=== PATIENT | male | born 1955 | race Caucasian/White ===

== ENCOUNTER 2018-08-05 07:56 | Day surgery (SDC) | payer BC ==
[~2018-08-05 07:56] MED LIST: ACETAMINOPHEN 1,000 MG/100 ML BTL IV ONE; CEFAZOLIN 2 Gram 2 GM/50 ML BAG IVPB ONE; CELECOXIB 100 MG CAPSULE PO ONE; FAMOTIDINE 20MG TABLET PO ONE; MECLIZINE 25 MG TABLET PO ONE; METOCLOPRAMIDE 10 MG TABLET PO ONE; SCOPOLAMINE 1 PATCH TDSY TD ONE; VANCOMYCIN HCL 1,000 MG in DEXTROSE 5 % IN WATER 250 ML IVPB ONE
[2018-08-05] MEDS ORDERED: BUPIVACAINE 0.5% W/EPI MPF 30 ML VIAL IVP ONE (07:57)
[2018-08-05] MEDS ORDERED: PROPOFOL 10 MG/ML VIAL IV ONE (07:57)
[2018-08-05] MEDS ORDERED: KETOROLAC 30 MG/ML VIAL IVP ONE (07:57)
[2018-08-05] MEDS ORDERED: TRANEXAMIC ACID 1,000 MG/10 ML ML IV ONE ×2 (07:57)
[2018-08-05] MEDS ORDERED: BUPIVACAINE LIPOSOME 266MG/20ML VIAL IV ONE (07:57)
[2018-08-05] MEDS ORDERED: MIDAZOLAM HCL 2MG/2ML VIAL IV ONE (07:57)
[2018-08-05] MEDS ORDERED: LIDOCAINE 2% MDV (20MG/ML) 20ML VIAL IV ONE (07:57)
[2018-08-05] MEDS ORDERED: KETAMINE HCL 100MG/1ML VIAL INJ ONE (07:57)
[2018-08-05] MEDS ORDERED: VANCOMYCIN HCL 1 GM VIAL IVPB ONE (07:57)
[2018-08-05] MEDS ORDERED: BISACODYL 10 MG SUPP RC PRN (08:29)
[2018-08-05] MEDS ORDERED: ONDANSETRON HCL IV 4 MG/2 ML VIAL IVP PRN (08:29)
[2018-08-05] MEDS ORDERED: HYDROCODONE/APAP 5/325MG TABLET PO PRN (08:29)
[2018-08-05] MEDS ORDERED: AL HYDROX/MAG HYDROX 30ML UD PO PRN (08:29)
[2018-08-05] MEDS ORDERED: PROMETHAZINE HCL 12.5 MG in 0.9 % SODIUM CHLORIDE 100ML 50 ML IVPB PRN (08:29)
[2018-08-05] MEDS ORDERED: DIPHENHYDRAMINE HCL 25 MG CAPSULE PO PRN (08:29)
[2018-08-05] MEDS ORDERED: ACETAMINOPHEN W/ CODEINE 300MG/30MG TABLET PO PRN ×2 (08:29)
[2018-08-05] MEDS ORDERED: TRAMADOL HCL 50 MG TABLET PO PRN ×2 (08:29)
[2018-08-05] MEDS ORDERED: ACETAMINOPHEN W/ CODEINE 300MG/60MG TABLET PO PRN ×2 (08:29)
[2018-08-05] MEDS ORDERED: NALOXONE 0.4 MG/1 ML VIAL IVP PRN (08:29)
[2018-08-05] MEDS ORDERED: ACETAMINOPHEN 325 MG TAB PO PRN (08:29)
[2018-08-05] MEDS ORDERED: HYDROCODONE/APAP 7.5/325MG TABLET PO PRN ×2 (08:29)
[2018-08-05] MEDS ORDERED: HYDROMORPHONE HCL 2 MG/ML VIAL IM PRN ×2 (08:29)
[2018-08-05] MEDS ORDERED: ZOLPIDEM TARTRATE 5 MG TABLET PO PRN (08:29)
[2018-08-05] MEDS ORDERED: KETOROLAC 30 MG/ML VIAL IVP PRN ×2 (08:29)
[2018-08-05] MEDS ORDERED: MAGNESIUM HYDROXIDE 30 ML UDC PO PRN (08:29)
[2018-08-05] MEDS ORDERED: METOCLOPRAMIDE HCL 10 MG/2 ML VIAL IVP PRN (08:29)
[2018-08-05 09:00] LABS: ABO GROUP A; ANTIBODY SCREEN NEGATIVE (NEGATIVE); RH TYPE POSITIVE
[2018-08-05] MEDS ORDERED: DOCUSATE SODIUM 100 MG CAPSULE PO SCH (10:00)
[2018-08-05] MEDS: DEXTROSE 5 % AND 0.9 % NACL 1,000 ML IV PRN ×2 (15:01→16:58)
--- NOTE | 2018-08-05 15:40 | Rehab Evaluation ---
Patient Information - Patient Information Diagnosis: R hip OA Ordered Treatment: PT Evaluate and Treat Status: Initial Evaluation Surgery: Yes (Revision of R THR) Date of Surgery: 08/05/18 Past Medical/Surgical Hx: PAST MEDICAL/SURGICAL HISTORY Past Surgical History RTHA 17 YRS AGO C SCOPES LTHA 3 YRS AGO PMH - Respiratory Hx Respiratory Disorders No PMH - Cardiovascular Hx Cardiovascular Disorders Yes Hx Hypertension Yes: ON MEDS FOR 1 MONTH Exercise Tolerance Fair PMH - Neuro Hx Neurological Disorders No PMH - GI Hx Gastrointestinal Disorders Yes Hx Diverticulitis Yes Hx Irritable Bowel Yes: INTERMITTENT DIARRHEA PMH - Hx Genitourinary Disorders No PMH - Endocrine Hx Endocrine Disorders No PMH - Musculoskeletal Hx Musculoskeletal Disorders Yes Hx Arthritis Yes PMH - Psych Hx Psychiatric Problems No PMH - Hematology/Oncology Hx Hematology/Oncology Yes Disorders Comment: BLEEDS EASILY Premorbid Status: Detail (The patient was independent with all mobility prior to surgery.) Social History: Detail (The patient lives with spouse in a one story house with 2 steps at the entrance. The patient's bathroom is equipped with a tub/shower combination with grab bars, shower chair, standard toilet with a commode seat. The patient has a wheelchair, standard walker and standard cane.) Precautions: [place], Fall, Other (THR precautions.) - Time With Patient Total Time Spent With Patient (Min): 30 Treatment Procedures: Detail (Initial Evaluation, gait training) Subjective Information - Subjective Information Per Patient (The patient had minimal complaints of R hip pain. The patient did not rate his pain using 0-10 pain scale.) Objective Data - Mental Status Patient Orientation: Oriented x3 - Visual Perception Appears within normal limits for therapeutic activities - ROM Not within normal limits (The patient's R hip is within THR precautions. All other LE AROM is WNL.) - Strength/Tone Not within normal limits (The patient's R LE strength was not tested s/p surgery , however was functional ie: the patient could lift R LE in and out of bed. The patient's L LE strength is WNL.) - Bed Mobility Independent (The patient was independent with supine to and from sit transfer.) - Transfers Independent (The patient was independent with sit to and from stand transfer and toilet transfer.) - Balance Balance Sitting: Good Balance Standing: Good - Sensation Intact - Gait Detail (The patient ambulated with standard walker a distance of 150 feet x 1 independently WBAT on the R LE. The patient ambulated on stairs using proper technique with one railing and folded walker with supervision for safety only.) Therapy Assessment - Therapy Assessment Detail (The patient was independent with bed mobility, transfers and ambulation , with supervision for safety on the stairs. Due to few personal factors the patient's evaluation complexity is rated as low. The patient has met all inpatient PT goals and is to receive Home PT.) Patient Education - Patient Education Teaching Topic: Exercise/Activity (The patient was independent with THR HEP including: gluteal sets, hamstring sets, quad sets, ankle pumps, hip abduction supine and heelslides.), Precautions (The patient expressed good understanding of THR precautions and followed them throughout mobility.) Response: Return Demonstration Teaching Method: Demonstration, Handout Teaching Recipient: Patient Barriers To Learning: None Problem List - Problem List Physical Therapy Problem List: Detail (Decreased R LE strength as to be expected following THR .) Goals - Goals Physical Therapy Goals: The patient has met all inpatient PT goals. Prognosis - Prognosis Good Plan - Plan Physical Therapy Plan: The patient is discharged from inpatient PT and is to continue with Home PT.
--- NOTE | 2018-08-05 16:16 | Physical Therapy Tx Note ---
Physical Therapy Tx Note - Treatment Note Physical Therapy Tx Note: Detail (The patient was not seen this afternoon due to low B/P while in bed. Will see patient on 08/06/18.)
[2018-08-05 16:36] LABS: HEMATOCRIT 31.2 % (42.0-52.0); HEMOGLOBIN 10.2 gm/dl (14.0-18.0); MEAN CELL VOLUME 97.5 fl (81-97); MEAN CORPUSCULAR HGB CONC 32.7 g/dl (32-36); MEAN PLATELET VOLUME 9.7 fl (7.4-10.4); PLATELET COUNT 255 K/uL (130-400); RED CELL DISTRIBUTION WIDTH 13.1 % (11.5-14.5); WHITE BLOOD COUNT W/O DIFF 11.1 K/uL (4.2-12.2)
[2018-08-05 16:42] LABS: MEAN CORPUSCULAR HEMOGLOBIN 31.8 pg (27-33)
--- NOTE | 2018-08-05 19:55 | Operative Note ---
DATE OF SURGERY: 08/05/2018 PREOPERATIVE DIAGNOSIS: FAILURE OF RIGHT TOTAL HIP ARTHROPLASTY, ACETABULAR LINER WEAR. POSTOPERATIVE DIAGNOSIS: FAILURE OF RIGHT TOTAL HIP ARTHROPLASTY, ACETABULAR LINER WEAR. PROCEDURE: REVISION TOTAL HIP ARTHROPLASTY ACETABULAR LINER AND FEMORAL HEAD. SURGEON: LOLIAT DE M.D. ANESTHESIA: SPINAL. CJ, MATHEW. COMPLICATIONS: NONE. BLOOD LOSS: 200 ML. OPERATIVE FINDINGS: COMPLETE WEAR, ALMOST FRACTURE OF THE SUPERIOR PORTION OF THE BIOMET ACETABULAR LINER. COMPONENTS PLACED: I replaced the liner, 32 mm Vitamin E impregnated long- lasting poly liner. We placed a 32 -6 mm ceramic femoral head component. INDICATIONS FOR OPERATION: This is a 62-year-old male who is about 17 years after this right total hip arthroplasty done by a surgeon out of town. He did well initially after. He is a manual construction laborer, on his feet all day. The acetabular component has progressive wear and we have been following him for the last few years. I did his left hip replacement a few years ago. He is doing well with that. He now developed more hip pain and diagnostic injection confirmed this. He had immediate relief after ultrasound-guided injection of his hip joint. He is scheduled for revision of the poly insert. I explained to the patient all the risks and benefits thoroughly in detail for the diagnosis and procedures including but not limited to infection, nerve injury, vessel injury, persistent pain, persistent numbness and tingling, need for further procedures, need for anticoagulation to prevent blood clots and the risks associated with these medications and all of his questions were answered. Rehab and course were outlined and he agreed to proceed. PROCEDURE: The patient was brought to the O.R. and placed in the left lateral decubitus position. His right hip and lower extremity were prepped and draped in sterile fashion. It was prepped again with ChloraPrep after it was draped. Intraoperative time-out was performed. Next, using the previous posterior approach to the hip, it was infiltrated with 0.5% Marcaine with Epinephrine. The skin and subcutaneous tissue were dissected down to the gluteal fascia. The gluteal fascia was split longitudinally. The subgluteal plane was bluntly dissected around the scar and we brought in our self-retainer. We took the short external rotators and took off a thick amount of scar. We then excised the scar, protecting the sciatic nerve at all times, directly visualized, dissecting around the periphery of the acetabulum along the neck and releasing that until we had exposure of the neck and the femoral head. We then dislocated the ceramic femoral head. We tapped that off without any difficulty. The stem was well fixed, stable with rotation, and the shell again was well fixed. There was no movement in it at all. The acetabular liner was obviously essentially warn. We released it around the periphery and we brought in Hohmann's and had good exposure and tucked the thermal neck anteriorly off the edge of the component. Next, we removed the acetabular liner with an osteotome easily. The split ring inside was still intact. We irrigated copiously. We again checked the stability of the liner and it was stable and on x-ray, again well fixed as well as the femoral stem. Next, then we planned on using a 32 mm head. We impacted down the real acetabular liner with a high wall with the gilbert of the wall in the posterior superior quadrant. We tapped that down to verify it was interlocked. Next, we trialed off that and trialed the -3 femoral head component. This allowed for good tensioning and stability with flexion and internal rotation, however, the leg lengths were slightly long. Therefore, went down to a -6. He had a -5 in previously. The -6 brought us down to normal leg lengths with still good abductor tensioning without being too sloppy. He had stability with extension in external rotation and stability with flexion in internal rotation and this was the size we used. Next, we re-dislocated the trials and irrigated copiously. We impacted down the real femoral head component. We re-reduced the hip. Final range of motion revealed the same. Next, we irrigated copiously. We injected deep to superficial using the 0.5% Marcaine, 2 gm tranexamic acid, and Exparel mixture, the short external rotators , subperiosteally in the trochanter area working out to the gluteal and the gluteal fascia. We closed the gluteal fascia with running #2 Quill suture. We closed the skin deep with #2-0 buried Vicryl, and a sterile dressing was applied. It will be converted to a JESUS dressing prior to discharge and left on for one week. Abduction pillow was applied. The patient tolerated the procedure well. No intraoperative complications. All sponge, needle, and blade counts were correct. Recovery stable, neurovascularly intact. He will be discharged to the Floor and likely discharged home tomorrow with home therapy nurse with [facility]. cc: Dr. Scotty Griffith JOB NUMBER: [id number] MTDD
[2018-08-05] MEDS: FERROUS SULFATE 325 MG TAB PO SCH (21:19)
[2018-08-05] MEDS: DOCUSATE SODIUM 100 MG CAPSULE PO SCH (21:19)
[2018-08-05] MEDS: HYDROCODONE/APAP 5/325MG TABLET PO PRN (21:19)
[2018-08-05] MEDS: VANCOMYCIN HCL 1,000 MG in DEXTROSE 5 % IN WATER 250 ML IVPB SCH ×2 (22:01)
[2018-08-06] MEDS: HYDROCODONE/APAP 5/325MG TABLET PO PRN ×2 (02:24→13:03)
[2018-08-06] MEDS: DEXTROSE 5 % AND 0.9 % NACL 1,000 ML IV PRN (03:20)
[2018-08-06 06:48] LABS: HEMATOCRIT 32.9 % (42.0-52.0); HEMOGLOBIN 10.5 gm/dl (14.0-18.0)
--- NOTE | 2018-08-06 08:26 | Rehab Evaluation ---
Patient Information - Patient Information Diagnosis: failed right PREMA Ordered Treatment: OT Evaluate and Treat Status: Initial Evaluation Surgery: Yes (Revision of R THR) Date of Surgery: 08/05/18 Past Medical/Surgical Hx: PAST MEDICAL/SURGICAL HISTORY Past Surgical History RTHA 17 YRS AGO C SCOPES LTHA 3 YRS AGO PMH - Respiratory Hx Respiratory Disorders No PMH - Cardiovascular Hx Cardiovascular Disorders Yes Hx Hypertension Yes: ON MEDS FOR 1 MONTH Exercise Tolerance Fair PMH - Neuro Hx Neurological Disorders No PMH - GI Hx Gastrointestinal Disorders Yes Hx Diverticulitis Yes Hx Irritable Bowel Yes: INTERMITTENT DIARRHEA PMH - Hx Genitourinary Disorders No PMH - Endocrine Hx Endocrine Disorders No PMH - Musculoskeletal Hx Musculoskeletal Disorders Yes Hx Arthritis Yes PMH - Psych Hx Psychiatric Problems No PMH - Hematology/Oncology Hx Hematology/Oncology Yes Disorders Comment: BLEEDS EASILY Premorbid Status: Detail (The patient was independent with all mobility, meal prep, yard work and laundry prior to surgery. Pt and spouse share home mgmt.) Social History: Detail (The patient lives with spouse in a one story house with basement and 2 steps at the entrance with nicola hand railings. The patient's bathroom is equipped with a tub/shower combination with grab bars and shower chair and a standard height toilet with a commode seat. The patient has a wheelchair, walker, wood gang sawyer, sock aid, long shoe horn and standard cane.) Precautions: [place], Fall, Other (THR precautions.) - Time With Patient Total Time Spent With Patient (Min): 40 Treatment Procedures: Detail (OT eval low complexity) Subjective Information - Subjective Information Per Patient Objective Data - Pain Pain Present: Yes (12/25) - Mental Status Patient Orientation: Oriented x3 - Visual Perception Appears within normal limits for therapeutic activities - ROM Within normal limits (Nicola UE AROM WNL) - Strength/Tone Within normal limits (Nicola UE strength WNL) - Coordination Appears within normal limits for therapeutic activities - Bed Mobility Independent (Ind with supine to sit) - Transfers Independent (Ind with sit to stand from EOB and chair heights.) - Balance Balance Sitting: Good Balance Standing: Good - Sensation Intact - Gait Detail (Pt ambulating in room and hallway with walker and SBA.) - ADL's/IADL's Detail (Pt educated re: total hip precautions and modified LE dressing techniques using adaptive equipment. Pt able to demonstrate doffing of slipper socks and donning of socks, pants and tennis shoes using wood gang sawyer, sock aid and long shoe horn while maintaining total hip precautions. He reports his can assist with tying shoes if needed. Reviewed bathroom and shower safety and modifications, pt verbalized understanding.) Therapy Assessment - Therapy Assessment Detail (Pt is Ind with modified LE dressing techniques.) Problem List - Problem List Occupational Therapy Problem List: Detail (No current IP OT problems identified. ) Goals - Goals Occupational Therapy Goals: No current IP OT goals identified. Prognosis - Prognosis Good Plan - Plan Occupational Therapy Plan: No further IP OT recommended. Thank you for this referral.
[2018-08-06] MEDS: DOCUSATE SODIUM 100 MG CAPSULE PO SCH (09:38)
[2018-08-06] MEDS: FERROUS SULFATE 325 MG TAB PO SCH (09:38)
[2018-08-06] MEDS: VANCOMYCIN HCL 1,000 MG in DEXTROSE 5 % IN WATER 250 ML IVPB SCH ×2 (09:39)
[2018-08-06] MEDS ORDERED: CELECOXIB 100 MG CAPSULE PO SCH (10:00)
[2018-08-06] MEDS ORDERED: RIVAROXABAN 10 MG TABLET PO SCH (10:00)
[2018-08-06] MEDS ORDERED: TAMSULOSIN HCL 0.4 MG CAP.ER.24H PO SCH (10:00)
[2018-08-06] MEDS ORDERED: ATENOLOL 50 MG TABLET PO SCH (10:00)
--- NOTE | 2018-08-06 20:26 | RADIOLOGY REPORT ---
EXAM: HIP,UNILAT, 1 VIEW RIGHT HISTORY: RIGHT HIP POST-OP REVISION. TECHNIQUE: Single portable AP view of the right hip. COMPARISON: None. FINDINGS: Right hip arthroplasty hardware appears in expected alignment on this single-view study. No acute fracture is seen. Soft tissue lucencies in the adjacent thigh, likely expected postoperative gas. IMPRESSION: UNREMARKABLE POSTOPERATIVE APPEARANCE OF THE RIGHT HIP. JOB NUMBER: [id number] MTDD
== END 2018-08-06 15:26 | disposition home or self-care (01) ==
LOC: SUR 07:56 → MEDSURG 12:55 → SUR 08-06 15:26
PROVIDERS: ATTEND Orthopaedic Surgery
DX: T84.090A Other mechanical complication of internal right hip prosthesis, initial encounter (principal); I10 Essential (primary) hypertension
CPT/HCPCS: 27134; 01215; 85018; 85014; 85027; 86900; 86901; 86850; 73501; J1885 ×2; J3370 ×2; J0690; C9290; J3490 ×2; C1776; J7042; J7060